=== PATIENT | male | born 1950 | race Caucasian/White ===

== ENCOUNTER 2018-11-07 17:01 | Emergency (ER) | payer BC ==
[~2018-11-07] VITALS: Ht 165.1 cm; Wt 74.8 kg
[~2018-11-07 17:01] MED LIST: ASPI-630 PO
[2018-11-07] MEDS ORDERED: BISACODYL 5 MG TABLET.DR. PO STA (17:34)
[2018-11-07] MEDS ORDERED: MAGNESIUM CITRATE 296 ML SOLUTION. PO ONE (17:45)
[2018-11-07 17:58] VITALS: BP 138/93
--- NOTE | 2018-11-07 18:03 | RAD ---
Abdominal radiograph 11/07/2018 INDICATION: Constipation for 3 days. COMPARISON: CT abdomen/pelvis June 01, 2015. TECHNIQUE: Upright and supine view of abdomen are provided. FINDINGS: There is no free intraperitoneal air. No dilated loops of small or large bowel. No differential air-fluid levels are identified. Surgical clips are identified in the right lower quadrant. No suspicious calcifications along the expected course of the genitourinary tract. No suspicious osseous abnormality. IMPRESSION: Nonobstructive bowel gas pattern. No significant stool burden within the colon. Electronically signed by: Debo Dunbar MD (11/07/2018 6:00 PM) [facility]
--- NOTE | 2018-11-07 18:23 | PHYS DOC ---
Past Medical History Past Medical History: GERD, Other Additional Past Medical Histor: kidney stones Past Surgical History: Other Additional Past Surgical Histo: kidney stones Alcohol Use: Rarely Drug Use: None Adult General Chief Complaint Chief Complaint: CONSTIPATION HPI HPI Patient is a 68 year old male with hx of appendectomy who presents today complaining of constipation for 3 days. Patient denies anything specifically making him constipated. He states he has previous history of constipation that was cleared up with a powdered drink. He states he tried this powdered drink for 3 days with no relief. He also states he was seen at urgent care and was given a suppository a couple hours ago which he tried and did not get anything out. He also states every time he has tried using the bathroom only small amount of liquid/diarrhea was noted, no blood in the stool. Review of Systems Review of Systems Constitutional: Denies fever or chills [] Eyes: Denies change in visual acuity, redness, or eye pain [] HENT: Denies nasal congestion or sore throat [] Respiratory: Denies cough or shortness of breath [] Cardiovascular: No additional information not addressed in HPI [] GI: Reports abdominal pain, constipation, diarrhea. denies nausea, vomiting, bloody stools or diarrhea [] : Denies dysuria or hematuria [] Musculoskeletal: Denies back pain or joint pain [] Integument: Denies rash or skin lesions [] Neurologic: Denies headache, focal weakness or sensory changes [] All other systems were reviewed and found to be within normal limits, except as documented in this note. Current Medications Current Medications Current Medications Medications (Trade) Dose Ordered Sig/[facility] Start Time Stop Time Status Last Admin Dose Admin Bisacodyl (Dulcolax Tab) 10 mg 1X STAT 11/07/18 17:34 11/07/18 17:43 DC 11/07/18 17:58 10 MG Magnesium Citrate (Citroma) 296 ml 1X ONCE 11/07/18 17:45 11/07/18 17:46 DC 11/07/18 17:58 296 ML Allergies Allergies Allergies Coded Allergies Type Severity Reaction Last Updated Verified No Known Drug Allergies 06/01/15 No Physical Exam Physical Exam Constitutional: Well developed, well nourished, no acute distress, non-toxic appearance. [] HENT: Normocephalic, atraumatic, bilateral external ears normal, oropharynx m oist, no oral exudates, nose normal. [] Eyes: PERRLA, EOMI, conjunctiva normal, no discharge. [] Neck: Normal range of motion, no tenderness, supple, no stridor. [] Cardiovascular:Heart rate regular rhythm, no murmur [] Lungs & Thorax: Bilateral breath sounds clear to auscultation [] Abdomen: Bowel sounds normal, soft, no tenderness, no masses, no pulsatile masses. [] Rectal exam External rectal area appears normal, no internal masses noted. No stool palpable in the lower end of the rectal vault Skin: Warm, dry, no erythema, no rash. [] Back: No tenderness, no CVA tenderness. [] Extremities: No tenderness, no cyanosis, no clubbing, ROM intact, no edema. [] Neurologic: Alert and oriented X 3, normal motor function, normal sensory function, no focal deficits noted. [] Psychologic: Affect normal, judgement normal, mood normal. [] Current Patient Data Vital Signs Vital Signs Date Time Temp Pulse Resp B/P (MAP) Pulse Ox O2 Delivery O2 Flow Rate FiO2 11/07/18 17:30 97.9 110 20 145/88 (107) 94 Room Air 97.9 EKG EKG [] Radiology/Procedures Radiology/Procedures []PROCEDURE: ABDOMEN SUPINE & UPRIGHT Abdominal radiograph 11/07/2018 INDICATION: Constipation for 3 days. COMPARISON: CT abdomen/pelvis June 01, 2015. TECHNIQUE: Upright and supine view of abdomen are provided. FINDINGS: There is no free intraperitoneal air. No dilated loops of small or large bowel. No differential air-fluid levels are identified. Surgical clips are identified in the right lower quadrant. No suspicious calcifications along the expected course of the genitourinary tract. No suspicious osseous abnormality. IMPRESSION: Nonobstructive bowel gas pattern. No significant stool burden within the colon. Electronically signed by: Lai Dean MD (11/07/2018 6:00 PM) [facility] DICTATED and SIGNED BY: LAI DEAN MD DATE: 11/07/18 1800 Course & Med Decision Making Course & Med Decision Making Pertinent Labs and Imaging studies reviewed. (See chart for details) This is a 68-year-old male patient presenting to the ED today with complaints of constipation for 3 days. Abdominal x-ray was negative for any acute findings, noted for nonobstructing gas otherwise no major fecal loading. Patient was given magnesium citrate in the ED. Encouraged to drink 1 a day until he has a normal bowel movement. Also encouraged to continue using MiraLAX and performing a suppository. Follow-up with PCP or GI provided. Bharati Disclaimer Dragon Disclaimer This electronic medical record was generated, in whole or in part, using a voice recognition dictation system. Departure Departure Impression: Primary Impression: Constipation Disposition: 01 HOME, SELF-CARE Condition: STABLE Referrals: ANTHONY FERRER (PCP) follow up in one week ANDREY KHANNA MD follow up in one week Patient Instructions: Constipation, Adult, [id number] Additional Instructions: You were evaluated in the emergency room for constipation. Continue using MiraLAX, you can also use magnesium citrate every day for the next 3 days until you have a normal bowel movement. You can perform one suppository per day or you can also do an enema. Please follow-up with your own doctor as well as the provided GI specialist, increase your dietary fiber intake as well as a water intake. Problem Qualifiers Primary Impression: Constipation Constipation type: unspecified constipation type Qualified Codes: K59.00 - Constipation, unspecified MELLISSA MAHAJAN FORESTRY FIRE AIDE Nov 07, 2018 18:23
== END 2018-11-07 18:28 | disposition home or self-care (01) ==
LOC: ER 17:01
DX: K59.00 Constipation, unspecified (principal)
CPT/HCPCS: 74021; 99284